=== PATIENT | female | born 1995 | race American Indian/Alaskan Native ===

== ENCOUNTER 2019-06-16 16:23 | Emergency (ER) | payer SELFPAY ==
--- NOTE | 2019-06-16 17:07 | Event Note ---
ED Screening Note Date of service: 06/16/19 Time: 17:04 ED Screening Note: This is a 23 y.o. F. that presents to the ER with headache and elevated BP for 2 days. Taking NSAIDs without relief. Denies fever, cough, chest pain, visual changes, or weakness. This initial assessment/diagnostic orders/clinical plan/treatment(s) is/are subject to change based on patients health status, clinical progression and re- assessment by fellow clinical providers in the ED. Further treatment and workup at subsequent clinical providers discretion. Patient/guardian urged not to elope from the ED as their condition may be serious if not clinically assessed and managed. Initial orders include:
[2019-06-16 17:09] VITALS: BP 139/97
== END 2019-06-16 17:30 | disposition left against medical advice (07) ==
LOC: ED 16:23
DX: R51 Headache (principal); Z53.21 Procedure and treatment not carried out due to patient leaving prior to being seen by health care provider

== ENCOUNTER 2020-12-04 23:29 | Emergency (ER) | payer SELFPAY ==
[2020-12-05 00:44] VITALS: BP 139/84
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
== END 2020-12-05 02:03 | disposition home or self-care (01) ==
LOC: ED 23:29
DX: M54.6 Pain in thoracic spine (principal); M41.9 Scoliosis, unspecified; R51.9 Headache, unspecified; I10 Essential (primary) hypertension; Z98.890 Other specified postprocedural states; Z79.899 Other long term (current) drug therapy; V87.7XXA Person injured in collision between other specified motor vehicles (traffic), initial encounter; Y93.89 Activity, other specified; Y92.488 Other paved roadways as the place of occurrence of the external cause; Y99.8 Other external cause status
CPT/HCPCS: 72070; 99283